=== PATIENT | male | born 1940 | race Two or more races ===

== ENCOUNTER 2020-07-12 14:33 | Emergency (ER) | payer MEDICARE, OTHER ==
[~2020-07-12] VITALS: Ht 172.7 cm; Wt 79.4 kg
[2020-07-12] MEDS ORDERED: TAMS-12 PO (15:05)
[2020-07-12] MEDS ORDERED: LEVO75TA7 PO (15:05)
[2020-07-12] MEDS ORDERED: FERR325T24 PO (15:05)
[2020-07-12] MEDS ORDERED: ROSU40TA23 PO (15:05)
[2020-07-12] MEDS ORDERED: FLUT1BLS12 INH (15:05)
[2020-07-12] MEDS ORDERED: CLOP75TA15 PO (15:05)
--- NOTE | 2020-07-12 15:05 | NUR ---
Patient came in to the er c/o hematuria x 1 day, Hx BPH. On room air, breathing evenly and unlabored. Denies any pain. Kept comfortable, will continue to monitor accordingly.
[2020-07-12] MEDS ORDERED: HYDR-3980 PO (15:07)
[2020-07-12] MEDS ORDERED: CELE-85 PO (15:07)
--- NOTE | 2020-07-12 15:12 | NUR ---
urine collected and sent to lab
--- NOTE | 2020-07-12 15:31 | NUR ---
BLADDER SCAN SHOWS <30CC OF URINE
[2020-07-12 15:33] LABS: BILIRUBIN,URINE NEGATIVE (NEGATIVE); BLOOD, URINE LARGE Ery/uL (NEGATIVE); COLOR,URINE RED (YELLOW); LEUKOCYTE ESTERASE ,URINE TRACE (NEGATIVE); NITRITE, URINE POSITIVE (NEGATIVE); PROTEIN,URINE 100 mg/dl (NEGATIVE); UGLUCOSE NEGATIVE (NEGATIVE)
[2020-07-12 15:38] LABS: RBC,URINE TOO NUMEROUS TO COUN /HPF (0-2)
[2020-07-12 15:40] LABS: BACTERIA,URINE RARE /HPF (None Seen); SQUAMOUS EPITHELIAL CELL,UR 0-2 /HPF (None Seen)
[2020-07-12 16:10] LABS: BASOPHILS # (AUTO) 0.2 /CMM (0.0-0.2); BASOPHILS % (AUTO) 3.4 % (0.0-2.0); HEMATOCRIT 39 % (39-51); HEMOGLOBIN 12.8 g/dL (13.5-17.5); LYMPHOCYTES # (AUTO) 1.8 /CMM (0.8-4.8); LYMPHOCYTES % (AUTO) 27.2 % (20.0-44.0); MEAN CORPUSCULAR HGB CONC 33 g/dl (31.0-36.0); MEAN CORPUSCULAR VOLUME 83 fL (80-96); MONOCYTES # (AUTO) 0.5 /CMM (0.1-1.30); MONOCYTES % (AUTO) 7.5 % (2.0-12.0); NEUTROPHILS # (AUTO) 3.7 /CMM (1.8-8.9); NEUTROPHILS % (AUTO) 54.9 % (43.0-81.0); PLATELET COUNT (AUTO) 237 /CMM (150-450); RED BLOOD CELL COUNT(AUTO) 4.72 MIL/uL (4.5-6.0); WHITE BLOOD COUNT (AUTO) 6.8 K/uL (4.3-11.0)
[2020-07-12 16:28] LABS: CALCIUM, SERUM 8.6 mg/dL (8.5-10.1); CREATININE 1.3 mg/dL (0.6-1.3); POTASSIUM 4.7 mmol/L (3.5-5.1)
[2020-07-12] MEDS ORDERED: IV NS 0.9% 1,000 ML BAG IV ONE (17:00)
[2020-07-12 17:21] VITALS: BP 130/81
--- NOTE | 2020-07-12 17:22 | NUR ---
Patient discharged to home in stable condition. Written and verbal after care instructions given. Patient verbalizes understanding of instruction.IV removed. Catheter intact and site benign. Pressure and 4x4 applied to site. No bleeding noted.
== END 2020-07-12 17:22 | disposition home or self-care (01) ==
LOC: ER 14:37
DX: R31.9 Hematuria, unspecified (principal); E86.0 Dehydration; I10 Essential (primary) hypertension; E78.2 Mixed hyperlipidemia; E03.9 Hypothyroidism, unspecified; Z79.899 Other long term (current) drug therapy
CPT/HCPCS: 36415; 80048; 81001; 85025; 85730; 87086; 96360; 99283; J7030

== ENCOUNTER 2021-12-07 18:26 | Emergency (ER) | payer MEDICARE, OTHER ==
[~2021-12-07] VITALS: Ht 172.7 cm; Wt 84.8 kg
[~2021-12-07 18:26] MED LIST: CELE-85 PO; CLOP75TA15 PO; FERR325T24 PO; FLUT1BLS12 INH; HYDR-3980 PO; LEVO75TA7 PO; ROSU40TA23 PO; TAMS-12 PO
--- NOTE | 2021-12-07 18:41 | NUR ---
[id number] (carin) [phone]
--- NOTE | 2021-12-07 19:30 | NUR ---
FRONT OFFICE REPRESENTATIVE AT PT'S BEDSIDE
--- NOTE | 2021-12-07 19:33 | NUR ---
r wrist #20g s/l; patent and intact. blood collected and sent to lab
--- NOTE | 2021-12-07 19:34 | NUR ---
US TECH AT PT'S BEDSIDE
[2021-12-07 19:51] LABS: BASOPHILS # (AUTO) 0.1 K/uL (0.0-0.2); BASOPHILS % (AUTO) 1.3 % (0.0-2.0); CALCIUM, SERUM 9.1 mg/dL (8.5-10.1); CARBON DIOXIDE 23 mmol/L (21-32); CHLORIDE 109 mmol/L (98-107); CREATININE 1.1 mg/dL (0.6-1.3); EOSINOPHILS % (AUTO) 6.3 % (0.0-6.0); GLUCOSE 103 mg/dL (74-106); HEMATOCRIT 40 % (39-51); HEMOGLOBIN 13.5 g/dL (13.5-17.5); LYMPHOCYTES # (AUTO) 1.4 K/uL (0.8-4.8); LYMPHOCYTES % (AUTO) 25.3 % (20.0-44.0); MEAN CORPUSCULAR HGB CONC 34 g/dl (31.0-36.0); MEAN CORPUSCULAR VOLUME 80 fL (80-96); MONOCYTES # (AUTO) 0.5 K/uL (0.1-1.30); MONOCYTES % (AUTO) 8.6 % (2.0-12.0); NEUTROPHILS # (AUTO) 3.2 K/uL (1.8-8.9); NEUTROPHILS % (AUTO) 58.5 % (43.0-81.0); PLATELET COUNT (AUTO) 220 K/uL (150-450); POTASSIUM 4.3 mmol/L (3.5-5.1); RED BLOOD CELL COUNT(AUTO) 4.97 MIL/uL (4.5-6.0); SODIUM SERUM 142 mmol/L (136-145); UREA NITROGEN, BLOOD 22 mg/dL (7-18); WHITE BLOOD COUNT (AUTO) 5.4 K/uL (4.3-11.0)
[2021-12-07 20:10] LABS: ALANINE AMINOTRANSFERASE 14 U/L (12-78); ALBUMIN 3.3 g/dL (3.4-5.0); ALKALINE PHOSPHATASE 51 U/L (46-116); ASPARTATE AMINOTRANSFERASE 16 U/L (15-37); BILIRUBIN,DIRECT 0.2 mg/dL (0.0-0.2); BILIRUBIN,TOTAL 0.9 mg/dL (0.2-1.0); TOTAL PROTEIN, SERUM 6.9 g/dL (6.4-8.2)
--- NOTE | 2021-12-07 20:11 | NUR ---
URINE COLLECTED AND SENT TO LAB
[2021-12-07 20:58] LABS: BILIRUBIN,URINE SMALL (NEGATIVE); COLOR,URINE YELLOW (YELLOW); LEUKOCYTE ESTERASE ,URINE NEGATIVE (NEGATIVE); NITRITE, URINE NEGATIVE (NEGATIVE); PH,URINE 5.5 (5.0-8.0); PROTEIN,URINE NEGATIVE (NEGATIVE); UGLUCOSE NEGATIVE (NEGATIVE); UROBILINOGEN,URINE 0.2 EU/dL (0.2)
[2021-12-07 21:25] LABS: WBC,URINE 0-2 /HPF (0-3)
[2021-12-07 21:26] LABS: BACTERIA,URINE Few /HPF (None Seen); CALCIUM OXALATE CRYSTALS,UR Few /HPF (None Seen); SQUAMOUS EPITHELIAL CELL,UR 0-2 /HPF (None Seen)
--- NOTE | 2021-12-07 22:11 | NUR ---
CALLED LAB TO F/U WITH MAGNESIUM RESULT
[2021-12-07] MEDS ORDERED: ACETAMINOPHEN 325 MG TABLET ONE (22:16)
[2021-12-07] MEDS ORDERED: ACETAMINOPHEN 325 MG TABLET PO ONE (22:30)
[2021-12-07 23:12] VITALS: BP 160/76
--- NOTE | 2021-12-07 23:12 | NUR ---
Patient discharged to home in stable condition. Written and verbal after care instructions given. Patient verbalizes understanding of instruction. IV removed. Catheter intact and site benign. Pressure and 4x4 applied to site. No bleeding noted. PT ambulatory with a steady gait
== END 2021-12-07 23:13 | disposition home or self-care (01) ==
LOC: ER 18:29
DX: I44.0 Atrioventricular block, first degree (principal); M79.605 Pain in left leg; M79.604 Pain in right leg; R60.0 Localized edema; I10 Essential (primary) hypertension; E78.5 Hyperlipidemia, unspecified; E03.9 Hypothyroidism, unspecified; Z87.438 Personal history of other diseases of male genital organs; Z79.899 Other long term (current) drug therapy
CPT/HCPCS: 36415; 71045-TC; 80048-TC; 80076-TC; 81001; 83735-TC; 83880; 84484-TC; 85025-TC; 93970-TC